=== PATIENT | female | born 1950 | race Caucasian/White ===

== ENCOUNTER 2019-12-04 14:02 | Inpatient (IN) ==
[2019-12-04] MEDS ORDERED: Acetaminophen 325 MG TABLET PO PRN (16:35)
[2019-12-04] MEDS ORDERED: Ondansetron 4 MG/2 ML VIAL IVP PRN (16:35)
[2019-12-04] MEDS ORDERED: Naloxone 0.4 MG/ML INJ IVP PRN (16:35)
[2019-12-04] MEDS: cefTRIAXone 1,000 MG in Water for inj. (sterile) 10 ML IVP SCH (19:02)
[2019-12-05 06:07] LABS: INR 1.2; Prothrombin Time 13.4 Seconds (9.4-12.1)
[2019-12-05 06:08] LABS: Basophils % 0.3 %; Eosinophils # 0.1 K/mcL (0.0-0.6); Eosinophils % 1.2 %; Hematocrit 34.7 % (35.3-44.9); Hemoglobin 11.8 g/dL (11.5-15.4); Immature Granulocytes % 0.2 % (0-4); Lymphocytes # 1.2 K/mcL (0.6-4.6); Mean Corpuscular Hemoglobin 30.5 pg (28.0-33.3); Mean Corpuscular Volume 89.7 fL (83.0-100.0); Mean Platelet Volume 10.6 fL (9.4-12.4); Monocytes # 0.6 K/mcL (0.0-1.3); Monocytes % 9.8 %; Neutrophils # 4.1 K/mcL (1.6-8.9); Platelet Count 215 K/mcL (140-400); Red Blood Count 3.87 M/mcL (3.82-4.97); Red Cell Distribution Width 11.9 % (11.5-14.5); Segmented Neutrophils % 68.5 %
[2019-12-05 06:43] LABS: Alanine Aminotransferase 10 Units/L (7-52); Albumin/Globulin Ratio 1.6 (1.1-2.2); Alkaline Phosphatase 67 Units/L (34-104); Aspartate Amino Transferase 14 Units/L (13-39); BUN/Creatinine Ratio 17 (6-26); Bilirubin,Total 0.5 mg/dL (0.3-1.0); Blood Urea Nitrogen 17 mg/dL (8-23); Calcium 9.7 mg/dL (8.6-10.3); Carbon Dioxide 29 mEq/L (23-29); Chloride 99 mEq/L (98-107); Globulin 2.5 g/dL (2.4-3.5); Glucose 97 mg/dL (70-105); Magnesium 1.6 mg/dL (1.6-2.6); Osmolality,Calculated 287 (280-300); Potassium 3.2 mEq/L (3.5-5.1); Sodium 138 mEq/L (136-145); Total Protein 6.5 g/dL (6.4-8.9); eGFR For African Americans > 60 (> 60); eGFR For Non-African Americans 55 (> 60)
[2019-12-05] MEDS ORDERED: Regadenoson 0.4 MG/5 ML SYRINGE IVP ONE (09:25)
[2019-12-05] MEDS: Aspirin 81 MG TAB.CHEW PO SCH (13:07)
[2019-12-05] MEDS: cefTRIAXone 1,000 MG in Water for inj. (sterile) 10 ML IVP SCH (13:15)
[2019-12-05] MEDS: Ampicillin/Sulbactam 3,000 MG in 0.9 % Sodium Chloride 100 ML IVPB SCH (23:11)
[2019-12-06] MEDS: Ampicillin/Sulbactam 3,000 MG in 0.9 % Sodium Chloride 100 ML IVPB SCH ×3 (05:18→17:04)
[2019-12-06] MEDS: Aspirin 81 MG TAB.CHEW PO SCH (07:55)
[2019-12-06 08:33] LABS: Eosinophils % 0.7 %; Hematocrit 36.8 % (35.3-44.9); Hemoglobin 12.1 g/dL (11.5-15.4); Immature Granulocytes % 0.3 % (0-4); Mean Corpuscular HGB Conc 32.9 g/dL (31.6-35.5); Mean Corpuscular Hemoglobin 31.1 pg (28.0-33.3); Mean Corpuscular Volume 94.6 fL (83.0-100.0); Mean Platelet Volume 10.5 fL (9.4-12.4); Monocytes % 10.4 %; Platelet Count 190 K/mcL (140-400); Red Blood Count 3.89 M/mcL (3.82-4.97); Red Cell Distribution Width 11.9 % (11.5-14.5); Segmented Neutrophils % 73.1 %; White Blood Count 6.1 K/mcL (4.3-11.1)
[2019-12-06 08:34] LABS: Basophils % 0.5 %; Lymphocytes # 0.9 K/mcL (0.6-4.6); Monocytes # 0.6 K/mcL (0.0-1.3); Neutrophils # 4.5 K/mcL (1.6-8.9)
[2019-12-06 08:48] LABS: Alanine Aminotransferase 10 Units/L (7-52); Albumin/Globulin Ratio 1.6 (1.1-2.2); Alkaline Phosphatase 68 Units/L (34-104); Aspartate Amino Transferase 17 Units/L (13-39); BUN/Creatinine Ratio 29 (6-26); Bilirubin,Total 0.6 mg/dL (0.3-1.0); Blood Urea Nitrogen 22 mg/dL (8-23); Calcium 9.2 mg/dL (8.6-10.3); Carbon Dioxide 29 mEq/L (23-29); Chloride 101 mEq/L (98-107); Globulin 2.5 g/dL (2.4-3.5); Glucose 102 mg/dL (70-105); Osmolality,Calculated 290 (280-300); Potassium 3.2 mEq/L (3.5-5.1); Sodium 138 mEq/L (136-145); Total Protein 6.5 g/dL (6.4-8.9); eGFR For African Americans > 60 (> 60); eGFR For Non-African Americans > 60 (> 60)
[2019-12-06] MEDS ORDERED: atenoloL 50 MG TABLET PO SCH (09:00)
[2019-12-06] MEDS ORDERED: Potassium Chloride 40 MEQ, Lidocaine 1% 2 ML in 0.9 % Sodium Chloride 500 ML IVPB ONE (09:18)
[2019-12-06] MEDS ORDERED: 0.9 % Sodium Chloride 2,000 ML ONE (10:36)
[2019-12-06] MEDS ORDERED: Heparin 1,000 UNITS/500 mL 500 ML ONE (10:36)
[2019-12-06] MEDS ORDERED: Nitroglycerin 1,000 MCG/10 ML VIAL IV ONE (10:36)
[2019-12-06] MEDS ORDERED: *HR* Heparin 10,000 UNIT/10 ML VIAL ONE (10:36)
[2019-12-06] MEDS ORDERED: ISOVUE-370 200 ML INFUS..BTL ONE (10:36)
[2019-12-06] MEDS ORDERED: *HR* Midazolam HCl 2 MG/2 ML VIAL ONE (11:05)
[2019-12-06] MEDS ORDERED: *HR* FentaNYL (PF) 100 MCG/2 ML VIAL ONE (11:05)
[2019-12-07] MEDS: Ampicillin/Sulbactam 3,000 MG in 0.9 % Sodium Chloride 100 ML IVPB SCH ×5 (00:27→23:22)
[2019-12-07 05:59] LABS: Basophils % 0.4 %; Eosinophils # 0.1 K/mcL (0.0-0.6); Eosinophils % 2.4 %; Hemoglobin 10.5 g/dL (11.5-15.4); Immature Granulocytes % 0.2 % (0-4); Lymphocytes # 1.3 K/mcL (0.6-4.6); Lymphocytes % 28.4 %; Mean Corpuscular HGB Conc 32.8 g/dL (31.6-35.5); Mean Corpuscular Hemoglobin 30.3 pg (28.0-33.3); Mean Corpuscular Volume 92.2 fL (83.0-100.0); Mean Platelet Volume 10.7 fL (9.4-12.4); Monocytes # 0.4 K/mcL (0.0-1.3); Neutrophils # 2.8 K/mcL (1.6-8.9); Platelet Count 193 K/mcL (140-400); Red Blood Count 3.47 M/mcL (3.82-4.97); Segmented Neutrophils % 60.6 %; White Blood Count 4.6 K/mcL (4.3-11.1)
[2019-12-07 06:17] LABS: Alanine Aminotransferase 10 Units/L (7-52); Albumin 3.3 g/dL (3.5-5.7); Albumin/Globulin Ratio 1.5 (1.1-2.2); Alkaline Phosphatase 59 Units/L (34-104); Aspartate Amino Transferase 17 Units/L (13-39); BUN/Creatinine Ratio 29 (6-26); Bilirubin,Total 0.3 mg/dL (0.3-1.0); Blood Urea Nitrogen 21 mg/dL (8-23); Calcium 8.5 mg/dL (8.6-10.3); Carbon Dioxide 27 mEq/L (23-29); Chloride 105 mEq/L (98-107); Globulin 2.2 g/dL (2.4-3.5); Glucose 96 mg/dL (70-105); Osmolality,Calculated 289 (280-300); Potassium 3.4 mEq/L (3.5-5.1); Sodium 138 mEq/L (136-145); Total Protein 5.5 g/dL (6.4-8.9); eGFR For African Americans > 60 (> 60); eGFR For Non-African Americans > 60 (> 60)
[2019-12-07] MEDS ORDERED: *HR* FentaNYL (PF) 100 MCG/2 ML VIAL ONE (14:59)
[2019-12-07] MEDS ORDERED: *HR* Propofol 200 MG/20 ML VIAL IVP ONE (14:59)
[2019-12-07] MEDS ORDERED: Dexamethasone 4 MG/ML VIAL ONE (15:00)
[2019-12-07] MEDS ORDERED: Lidocaine -MPF 2% 2 ML VIAL ONE (15:00)
[2019-12-07] MEDS ORDERED: *HR* Succinylcholine 200 MG/10 ML VIAL IVP ONE (15:00)
[2019-12-07] MEDS ORDERED: *HR* Rocuronium Bromide 50 MG/5 ML VIAL ONE (15:00)
[2019-12-07] MEDS ORDERED: Ondansetron 4 MG/2 ML VIAL ONE (15:00)
[2019-12-07] MEDS ORDERED: *HR* OxyCODONE Immed Rel 5 MG TABLET PO PRN ×2 (15:03→18:16)
[2019-12-07] MEDS ORDERED: *HR* HYDROmorphone PF 0.5 MG/0.5 ML SYRINGE IVP PRN (15:03)
[2019-12-07] MEDS ORDERED: Ondansetron 4 MG/2 ML VIAL IVP ONE (15:03)
[2019-12-07] MEDS ORDERED: Bupivacaine/EPI 1:200k 0.25%PF 30 ML VIAL ONE (15:31)
[2019-12-07] MEDS ORDERED: Acetaminophen IV 1,000 MG/100 ML INFUS..BTL ONE (15:50)
[2019-12-07] MEDS ORDERED: Ketorolac 30 MG/ML VIAL ONE (16:35)
[2019-12-07] MEDS ORDERED: Neostigmine Methylsulfate 3 MG/3 ML SYRINGE ONE (16:35)
[2019-12-07] MEDS ORDERED: Ondansetron 4 MG/2 ML VIAL IVP PRN (18:16)
[2019-12-07] MEDS ORDERED: Naloxone 0.4 MG/ML INJ IVP PRN (18:16)
[2019-12-07] MEDS ORDERED: Morphine Sulfate Oral CONC 10 MG/0.5 ML ORAL.SYG SL PRN (18:16)
[2019-12-07] MEDS: Acetaminophen 325 MG TABLET PO PRN (20:55)
[2019-12-08] MEDS: Acetaminophen 325 MG TABLET PO PRN (02:55)
[2019-12-08] MEDS: Ampicillin/Sulbactam 3,000 MG in 0.9 % Sodium Chloride 100 ML IVPB SCH (05:10)
[2019-12-08 05:29] LABS: Hematocrit 29.4 % (35.3-44.9); Hemoglobin 9.8 g/dL (11.5-15.4); Mean Corpuscular HGB Conc 33.3 g/dL (31.6-35.5); Mean Corpuscular Hemoglobin 30.8 pg (28.0-33.3); Mean Corpuscular Volume 92.5 fL (83.0-100.0); Mean Platelet Volume 10.8 fL (9.4-12.4); Platelet Count 230 K/mcL (140-400); Red Blood Count 3.18 M/mcL (3.82-4.97); Red Cell Distribution Width 11.6 % (11.5-14.5); White Blood Count 6.1 K/mcL (4.3-11.1)
[2019-12-08 05:50] LABS: BUN/Creatinine Ratio 31 (6-26); Blood Urea Nitrogen 22 mg/dL (8-23); Calcium 8.6 mg/dL (8.6-10.3); Carbon Dioxide 21 mEq/L (23-29); Chloride 104 mEq/L (98-107); Glucose 87 mg/dL (70-105); Osmolality,Calculated 287 (280-300); Potassium 4.1 mEq/L (3.5-5.1); Sodium 137 mEq/L (136-145); eGFR For African Americans > 60 (> 60); eGFR For Non-African Americans > 60 (> 60)
[2019-12-08 07:18] VITALS: BP 118/72
[2019-12-08] MEDS ORDERED: Aspirin 81 MG TAB.CHEW PO SCH (09:00)
[2019-12-08] MEDS ORDERED: atenoloL 50 MG TABLET PO SCH (09:00)
== END 2019-12-08 12:24 | disposition home or self-care (01) | DRG 418 ==
LOC: 3BNU
PROVIDERS: ADMIT Internal Medicine; ATTEND Internal Medicine